=== PATIENT | female | born 1995 | race Caucasian/White ===

== ENCOUNTER 2024-12-09 16:48 | Emergency (ER) | payer MEDICAID ==
[~2024-12-09] VITALS: Ht 162.6 cm; Wt 59.0 kg
[2024-12-09 16:50] VITALS: O2SAT 98
[2024-12-09] MEDS ORDERED: SODIUM CHLORIDE 0.9% 1,000 ML IV ONE (17:15)
[2024-12-09 17:41] LABS: BASOPHILS % 0.2 % (0.0-2.0); EOSINOPHILS % 0.8 % (0.0-5.0); HEMATOCRIT. 37.9 % (36.0-48.0); HEMOGLOBIN. 12.8 g/dL (12.0-16.0); LYMPHOCYTES % 27.8 % (20.0-50.0); MEAN PLATELET VOLUME 8.3 fl (7.4-10.4); MONOCYTES % 5.7 % (2.0-8.0); NEUTROPHILS % 65.5 % (40.0-76.0); PLATELET 293 x1000/uL (130-400); RED BLOOD CELL COUNT 4.30 mill/uL (4.2-5.4); RED CELL DISTRIBUTION WIDTH 13.3 % (11.6-14.6)
[2024-12-09 17:57] LABS: HCG SCREEN NEGATIVE
[2024-12-09 17:59] LABS: CREATININE 0.6 mg/dL (0.6-1.0); UREA NITROGEN BLOOD 6 mg/dL (9-23)
[2024-12-09 18:01] LABS: TROPONIN I HIGH SENSITIVITY < 4 ng/L (3.0-34)
[2024-12-09 18:26] VITALS: BP 113/60; PULSE 60; RESP 16; TEMP 36.6; O2SAT 100
== END 2024-12-09 18:50 | disposition home or self-care (01) ==
LOC: ER 16:48
DX: R55 Syncope and collapse (principal); R00.2 Palpitations; F41.9 Anxiety disorder, unspecified
CPT/HCPCS: 80048; 84703; 85025; 84484; 36415; 71045; 93005; 99285; J7030; Z7610 ×2; A4606